=== PATIENT | male | born 1985 | race Caucasian/White ===

== ENCOUNTER 2017-10-31 10:25 | Emergency (ER) | payer BC, OTHER ==
[~2017-10-31] VITALS: Ht 180.3 cm; Wt 97.4 kg
[~2017-10-31 10:25] MED LIST: AMOX500T PO; HYDR-3245 PO; IBUP100O23 PO
[2017-10-31 10:26] VITALS: BP 120/79
[2017-10-31] MEDS ORDERED: KETOROLAC 30 MG/1 ML IM ONE (11:00)
[2017-10-31] MEDS ORDERED: KETOROLAC 30 MG/1 ML ONE (11:02)
[2017-10-31] MEDS ORDERED: NAPR220C2 PO (11:09)
== END 2017-10-31 11:11 | disposition home or self-care (01) ==
LOC: ED 11:05
DX: S43.421A Sprain of right rotator cuff capsule, initial encounter (principal); F17.210 Nicotine dependence, cigarettes, uncomplicated; Y93.89 Activity, other specified; Y92.89 Other specified places as the place of occurrence of the external cause; Y99.2 Volunteer activity; X58.XXXA Exposure to other specified factors, initial encounter
CPT/HCPCS: 73030; 96372; 99284; J1885

== ENCOUNTER 2018-05-01 11:07 | Emergency (ER) | payer BC ==
[~2018-05-01] VITALS: Ht 180.3 cm; Wt 82.0 kg
[~2018-05-01 11:07] MED LIST changes: -IBUP100O23 PO; +IBUP100O24 PO; +NAPR220C2 PO
[2018-05-01 11:11] VITALS: BP 140/97
== END 2018-05-01 12:02 | disposition home or self-care (01) ==
LOC: ED 11:56
DX: M79.671 Pain in right foot (principal); M77.12 Lateral epicondylitis, left elbow; F17.200 Nicotine dependence, unspecified, uncomplicated
CPT/HCPCS: 99284

== ENCOUNTER 2018-08-28 08:34 | Emergency (ER) | payer BC ==
[~2018-08-28] VITALS: Ht 180.3 cm; Wt 96.7 kg
[2018-08-28 08:44] VITALS: BP 144/96
[2018-08-28] MEDS ORDERED: KETOROLAC 30 MG/1 ML IM ONE (09:00)
[2018-08-28] MEDS ORDERED: DIAZEPAM 5 MG TABLET PO ONE (09:00)
[2018-08-28] MEDS ORDERED: DIAZEPAM 5 MG TABLET ONE (09:23)
[2018-08-28] MEDS ORDERED: KETOROLAC 30 MG/1 ML ONE (09:23)
== END 2018-08-28 09:48 | disposition home or self-care (01) ==
LOC: ED 09:39
DX: G89.29 Other chronic pain (principal); M54.5 Low back pain
CPT/HCPCS: 96372; 99283; J1885

== ENCOUNTER 2018-09-11 10:33 | Emergency (ER) | payer BC ==
[~2018-09-11] VITALS: Ht 180.3 cm; Wt 96.3 kg
[2018-09-11 10:34] VITALS: BP 135/88
[2018-09-11] MEDS ORDERED: NAPR-685 PO (10:45)
[2018-09-11] MEDS ORDERED: DIAZEPAM 5 MG TABLET ONE (10:51)
[2018-09-11] MEDS ORDERED: HYDROcodone/APAP 5/325 TABLET ONE (10:51)
[2018-09-11] MEDS ORDERED: KETOROLAC 30 MG/1 ML ONE (10:51)
[2018-09-11] MEDS ORDERED: HYDROcodone/APAP 5/325 TABLET PO ONE (11:00)
[2018-09-11] MEDS ORDERED: KETOROLAC 30 MG/1 ML IM ONE (11:00)
[2018-09-11] MEDS ORDERED: DIAZEPAM 5 MG TABLET PO ONE (11:00)
== END 2018-09-11 12:11 | disposition home or self-care (01) ==
LOC: ED 11:48
DX: S39.012A Strain of muscle, fascia and tendon of lower back, initial encounter (principal); M47.896 Other spondylosis, lumbar region; F17.210 Nicotine dependence, cigarettes, uncomplicated; X58.XXXA Exposure to other specified factors, initial encounter; Y93.89 Activity, other specified; Y92.89 Other specified places as the place of occurrence of the external cause; Y99.8 Other external cause status
CPT/HCPCS: 72110; 96372; 99283; J1885

== ENCOUNTER 2019-05-04 19:51 | Emergency (ER) | payer BC ==
[~2019-05-04] VITALS: Ht 180.3 cm; Wt 97.0 kg
[~2019-05-04 19:51] MED LIST changes: +NAPR-685 PO
[2019-05-04] MEDS ORDERED: ACETAMINOPHEN 500 MG TABLET ONE (21:22)
[2019-05-04] MEDS ORDERED: KETOROLAC 30 MG/1 ML ONE (21:22)
[2019-05-04 21:29] LABS: MEAN CORPUSCULAR HEMOGLOBIN 32.6 pg (27.5-34.5); MEAN CORPUSCULAR HGB CONC 33.7 g/dL (33.2-36.2); MEAN CORPUSCULAR VOLUME 96.9 fL (81-97); MEAN PLATELET VOLUME 7.7 fL (7.4-10.4); PLATELET COUNT 220 x10^3/uL (130-400); RED BLOOD COUNT 4.36 x10^6/uL (4.38-5.82); RED CELL DISTRIBUTION WIDTH 12.4 % (9.4-14.8)
[2019-05-04] MEDS ORDERED: KETOROLAC 30 MG/1 ML IVPush ONE (21:30)
[2019-05-04] MEDS ORDERED: SODIUM CHLORIDE 0.9% 1,000ML IVBOLUS ONE (21:30)
[2019-05-04] MEDS ORDERED: ACETAMINOPHEN 500 MG TABLET PO ONE (21:30)
[2019-05-04 21:37] LABS: RAPID INFLUENZA A Negative (Negative); RAPID INFLUENZA B Negative (Negative)
[2019-05-04 21:37] LABS: ALBUMIN 4.3 g/dL (3.4-5.0); ANION GAP 4 mmol/L (5-15); CALCIUM 8.9 mg/dL (8.5-10.1); CHLORIDE 109 mmol/L (98-107); CREATININE 1.15 mg/dL (0.7-1.3)
[2019-05-04 21:52] LABS: BASOPHILS % (AUTO) 0 % (0-1); EOSINOPHILS % (AUTO) 1 % (1-7); LYMPHOCYTES # (AUTO) 0.69 x10^3/uL (1-3.4); LYMPHOCYTES % (AUTO) 4 % (22-44); MD SCAN; MONOCYTES # (AUTO) 0.62 x10^3/uL (0.2-0.8); MONOCYTES % (AUTO) 4 % (2-9); NEUTROPHILS % (AUTO) 91 % (42-75)
[2019-05-04 22:04] LABS: MICROSCOPIC NOT IND
[2019-05-04 22:06] LABS: CULTURE INDICATED? NO
[2019-05-04 22:46] VITALS: BP 124/70
== END 2019-05-04 22:50 | disposition home or self-care (01) ==
LOC: ED 22:12
DX: M25.511 Pain in right shoulder (principal); F17.200 Nicotine dependence, unspecified, uncomplicated
CPT/HCPCS: 36415; 71045; 80048; 81003; 82040; 85025; 87400; 93005; 96374; 99284; J1885; J7030

== ENCOUNTER 2019-07-21 14:23 | Emergency (ER) | payer BC ==
[~2019-07-21] VITALS: Ht 180.3 cm; Wt 96.9 kg
[2019-07-21 14:28] VITALS: BP 135/85
--- NOTE | 2019-07-21 15:26 | NUR ---
REVIEWED DISCHARGE INSTRUCTIONS AND PRESCRIPTIONS W/ PT, VERBALIZED UNDERSTANDING TO INFORMATION PROVIDED INCLUDING FOLLOW UP CARE AND RETURN PRECAUTIONS, DENIED QUESTIONS/CONCERNS. PT ASKING FOR WORK RELEASE NOTE.
--- NOTE | 2019-07-21 15:29 | NUR ---
PT PROVIDED W/ WORK NOTE, AMBULATED FROM ED W/ FAMILY.
== END 2019-07-21 15:32 | disposition home or self-care (01) ==
LOC: ED 14:50
DX: B35.3 Tinea pedis (principal); Z87.891 Personal history of nicotine dependence
CPT/HCPCS: 99283

== ENCOUNTER 2019-09-16 11:22 | Emergency (ER) | payer BC ==
[~2019-09-16] VITALS: Ht 180.3 cm; Wt 96.4 kg
[2019-09-16] MEDS ORDERED: METHOCARBAMOL 750 MG TABLET ONE (11:52)
[2019-09-16] MEDS ORDERED: KETOROLAC 30 MG/1 ML ONE (11:52)
[2019-09-16] MEDS ORDERED: METHOCARBAMOL 750 MG TABLET PO ONE (12:00)
[2019-09-16] MEDS ORDERED: KETOROLAC 30 MG/1 ML IM ONE (12:00)
--- NOTE | 2019-09-16 12:57 | NUR ---
PT STATES NO RELIEF WITH MEDICATION. ERP NOTIFIED.
[2019-09-16] MEDS ORDERED: OXYcodone/APAP 5/325MG TABLET ONE (13:01)
[2019-09-16 13:03] VITALS: BP 132/71
[2019-09-16] MEDS ORDERED: OXYcodone/APAP 5/325MG TABLET PO ONE (13:30)
== END 2019-09-16 13:11 | disposition home or self-care (01) ==
LOC: ED 13:10
DX: M54.5 Low back pain (principal); G89.29 Other chronic pain
CPT/HCPCS: 96372; 99283; J1885